=== PATIENT | male | born 1975 | race Caucasian/White ===

== ENCOUNTER 2017-02-21 10:26 | Emergency (ER) | payer BC ==
[2017-02-21] MEDS ORDERED: CONTRAST GIVEN MC (12:00)
[2017-02-21 12:08] LABS: ADD MAN DIFF? NO
[2017-02-21 12:10] LABS: AGAP ISTAT 16 mmol/L (6-14); BUN ISTAT 18 mg/dL (8-26); CHLORIDE ISTAT 101 mmol/L (98-110); CREATININE ISTAT 1.1 mg/dL (0.5-1.4); GLUCOSE ISTAT 117 mg/dL (70-99); HEMATOCRIT ISTAT 44 % (37-52); ION CA ISTAT 1.21 mmol/L (1.13-1.32); POTASSIUM ISTAT 4.6 mmol/L (3.5-5.0); SODIUM ISTAT 139 mmol/L (135-145); TOT CO2 ISTAT 28 mmol/L (23-32)
[2017-02-21] MEDS: IOHEXOL 300 MG/ML 100ML VIAL. IV (12:12)
[2017-02-21 12:13] LABS: BASO % 0 % (0-3); EOS # 0.1 x10^3/uL (0.0-0.7); EOS % 2 % (0-3); HEMATOCRIT 45.6 % (39.0-53.0); HEMOGLOBIN 15.2 g/dL (13.0-17.5); LYMPH # 0.4 x10^3/uL (1.0-4.8); LYMPH % 7 % (24-48); MEAN CORPUSCULAR HEMOGLOBIN 30 pg (25-35); MEAN CORPUSCULAR HGB CONC 33 g/dL (31-37); MEAN CORPUSCULAR VOLUME 89 fL (79-100); MONO # 0.5 x10^3/uL (0.0-1.1); MONO % 9 % (0-9); NEUT # 4.6 x10^3uL (1.8-7.7); NEUT % 82 % (31-73); PLATELET COUNT 249 x10^3/uL (140-400); RED CELL DISTRIBUTION WIDTH 13.5 % (11.5-14.5); WHITE BLOOD COUNT 5.6 x10^3/uL (4.0-11.0)
[2017-02-21] MEDS: DEXAMETHASONE 4 MG TABLET PO (13:28)
== END 2017-02-21 13:31 | disposition home or self-care (01) ==
LOC: ER 10:26
DX: R22.0 Localized swelling, mass and lump, head (principal)
CPT/HCPCS: 36415; 70491; 80047; 85025; 99285-25; J8540; Q9967

== ENCOUNTER → 2017-12-30 | Outpatient (CLI) | payer BC ==
[2017-02-21 10:55] VITALS: BP 137/86
[~2017-12-30] MED LIST: AMOX1TAB61 PO; DEXA4TAB PO; Muscle relaxant PO; OXYC-323 PO; PRED-220 PO
--- NOTE | 2017-12-30 11:02 | KCIC ---
MRI of the lumbar spine without contrast 12/30/2017 CLINICAL HISTORY: Low back pain which radiates down both legs. Lower extremity paresthesias. TECHNIQUE: Unenhanced T1-weighted and T2-weighted sagittal and axial and inversion recovery sagittal images of the lumbar spine were obtained. FINDINGS: Comparison study is dated 02/20/2016. Mild S-shaped curvature of the thoracolumbar spine is seen. Degenerative signal changes are seen involving the L4-5 discs. Degenerative signal changes are seen within the marrow surrounding this disc. A 1 cm hemangioma is seen involving the T12 vertebral body. The conus medullaris is normal morphology, position, and signal characteristics. At the L1-2 and L2-3 disc spaces there are minimal generalized disc bulges. Degenerative changes are seen involving the facet joints bilaterally. There is mild ligamentum flavum hypertrophy bilaterally. There is prominence of the posterior epidural fat. These findings when combined do not result in significant central spinal canal or neural foraminal stenosis. At the L3-4 disc space there is a mild generalized disc bulge. Degenerative changes are seen involving the facet joints bilaterally. There is mild ligamentum flavum hypertrophy bilaterally. These findings when combined with prominence of the posterior epidural fat do not result in significant central spinal canal or neural foraminal stenosis. At the L4-5 disc space there is a mild generalized disc bulge. Superimposed on this disc bulge is a left paracentral focal disc protrusion. This measures 3 to 4 mm in AP diameter. Degenerative changes are seen involving the facet joints bilaterally. There is mild ligamentum flavum hypertrophy. These findings when combined result in mild left greater than right central spinal canal stenosis. No neural foraminal stenosis is seen. At the L5-S1 disc space there is a mild generalized disc bulge. Degenerative changes are seen involving the facet joints bilaterally. There is mild ligamentum flavum hypertrophy bilaterally. These findings when combined do not result in significant central spinal canal or neural foraminal stenosis. IMPRESSION: The changes of degenerative disc disease are seen throughout the lumbar spine. These findings result in mild left greater than right central spinal canal stenosis at L4-5. No neural foraminal stenosis is seen. Electronically signed by: Viet Gutierrez MD (12/30/2017 10:58 AM) [id number]
== END | disposition home or self-care (01) ==
LOC: KCIC MRI 07:53
PROVIDERS: ATTEND Family Medicine
DX: M51.36 Other intervertebral disc degeneration, lumbar region (principal); M51.26 Other intervertebral disc displacement, lumbar region; M48.061 Spinal stenosis, lumbar region without neurogenic claudication; D18.09 Hemangioma of other sites
CPT/HCPCS: 72148

== ENCOUNTER → 2018-01-17 | Outpatient (CLI) | payer BC ==
[2017-02-21 10:55] VITALS: BP 137/86
[~2018-01-17] MED LIST changes: -OXYC-323 PO; +OXYC1TAB15 PO
--- NOTE | 2018-01-17 16:35 | KCIC ---
History: Left hip pain. Comparison: None. Findings: AP and frog-leg views of the left hip. No acute fracture or dislocation is identified. No significant degeneration is seen. Impression: Unremarkable left hip radiographs. Electronically signed by: Kwame Ordonez MD (01/17/2018 4:31 PM) [place] [id number]
== END | disposition home or self-care (01) ==
LOC: KCIC 16:08
PROVIDERS: ATTEND Neurological Surgery
DX: M25.552 Pain in left hip (principal); G89.29 Other chronic pain
CPT/HCPCS: 73502